=== PATIENT | female | born 1980 | race Caucasian/White ===

== ENCOUNTER 2017-04-22 17:43 | Emergency (ER) | payer OTHER ==
[2017-04-22 17:53] VITALS: BP 127/78; PULSE 81; TEMP 98.3; BMI 30.7
[2017-04-22] MEDS ORDERED: KETOROLAC TROMETHAMINE 60 MG/2 ML VIAL ONE (18:09)
[2017-04-22] MEDS ORDERED: KETOROLAC TROMETHAMINE 60 MG/2 ML VIAL IM ONE (18:12)
--- NOTE | 2017-04-22 18:16 | PDOC ---
History of Present Illness - General Chief Complaint: Sore Throat Stated Complaint: EAR PROBLEM Time Seen by Provider: 04/22/17 17:57 - History of Present Illness Initial Comments: 04/22/17 18:10 CHIEF COMPLAINT: ear/sore pain HISTORY OF PRESENT ILLNESS: 36 yo F with no PMH presents to [facility] with sore throat and L ear pain x 2 days. She reports fever yesterday of "like 100 degrees." Patient states she just returned from the last week. PAST MEDICAL HISTORY: Denies past medical history FAMILY HISTORY: Denies SOCIAL HISTORY: Denies tobacco, alcohol, illicit drug use. SURGICAL HISTORY: tubal ligation ALLERGIES: No known drug allergies REVIEW OF SYSTEMS General/Constitutional: Denies fever or chills. Denies weakness, weight change. HEENT: L ear pain, sore throat. Denies change in vision. Cardiovascular: Denies chest pain or shortness of breath. Respiratory: Denies cough, wheezing, or hemoptysis. Gastrointestinal: Denies nausea, vomiting, diarrhea or constipation. Denies rectal bleeding. Genitourinary: Denies dysuria, frequency, or change in urination. Musculoskeletal: Denies joint or muscle swelling or pain. Denies neck or back pain. Skin and breasts: Denies rash or easy bruising. Neurologic: Denies headache, vertigo, loss of consciousness, or loss of sensation. PHYSICAL EXAM General Appearance: Well-appearing, appropriately dressed. No apparent distress , no intoxication. HEENT: Bulging L TM with white discharge. EOMI, PERRLA, normal voice. No conjunctival pallor. No photophobia, scleral icterus. Neck: Supple. Trachea midline. No tenderness, rigidity, carotid bruit, stridor , lymphadenopathy, or thyromegaly. Respiratory/Chest: Lungs CTAB. No shortness of breath, chest tenderness, respiratory distress, accessory muscle use. No crackles, rales, rhonchi, stridor , wheezing, dullness Cardiovascular: RRR. S1, S2. No JVD, murmur, bradycardia, tachycardia. Vascular Pulses: Dorsalis-Pedis (R): 2+, Dorsalis-Pedis (L): 2+ Gastrointestinal/Abdominal: Normal bowel sounds. Abdomen soft, non-distended. No tenderness or rebound tenderness. No organomegaly, pulsatile mass, guarding , hernia, hepatomegaly, splenomegaly. Lymphatic: No adenopathy, tenderness. Musculoskeletal/Extremities: Normal inspection. FROM of all extremities, normal capillary refill. Pelvis Stable. No CVA tenderness. No tenderness to extremities, pedal edema, swelling, erythema or deformity. Integumentary: Appropriate color, dry, warm. 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 Fully oriented, alert. Appropriate mood/affect. Motor strength 5/5. No appreciable EOM palsy, facial droop or sensory deficit. 04/22/17 18:12 Past History - Past Medical History Allergies/Adverse Reactions: Allergies Allergy/AdvReac Type Severity Reaction Status Date / Time No Known Allergies Allergy Verified 04/22/17 17:51 Home Medications: Ambulatory Orders Amoxicillin - [Amoxicillin 875mg Tablet -] 875 mg PO BID #20 tablet 04/22/17 Ibuprofen 600 mg PO TID PRN #21 tablet 04/22/17 Other medical history: DENIES. - Surgical History Abdominal Surgery: Yes (DARLENE TAVAREZ) - Immunization History Immunization Up to Date: Yes - Psycho/Social/Smoking Cessation Hx Anxiety: No Suicidal Ideation: No Smoking History: Never smoked Have you smoked in the past 12 months: No Number of Cigarettes Smoked Daily: 0 Cigars Per Day: 0 Hx Alcohol Use: No Drug/Substance Use Hx: No Substance Use Type: None *Physical Exam - Vital Signs Last Vital Signs Temp Pulse Resp BP Pulse Ox 98.3 F 81 19 127/78 99 04/22/17 17:51 04/22/17 17:51 04/22/17 17:51 04/22/17 17:51 04/22/17 17:51 Medical Decision Making - Medical Decision Making 04/22/17 18:16 36 yo F with no PMH presents to [facility] with sore throat and L ear pain x 2 days. -Rapid strep Amoxicillin rx sent to pharm. Advised patient to take medications as prescribed and f/u with ENT if symptoms persist past 4-5 days. Advised patient of signs and symptoms for return to ER; patient verbalized understanding and agrees to plan. *DC/Admit/Observation/Transfer Diagnosis at time of Disposition: Otitis media Qualifiers: Otitis media type: suppurative Chronicity: acute Laterality: left Recurrence: not specified as recurrent Spontaneous tympanic membrane rupture: without spontaneous rupture Qualified Code(s): H66.002 - Acute suppurative otitis media without spontaneous rupture of ear drum, left ear - Discharge Dispostion Disposition: HOME Condition at time of disposition: Stable Admit: No - Prescriptions Prescriptions: Amoxicillin - [Amoxicillin 875mg Tablet -] 875 mg PO BID #20 tablet Ibuprofen 600 mg PO TID PRN #21 tablet PRN Reason: Pain Or Fever - Referrals Referrals: Mango Self MD [Staff Physician] - - Patient Instructions Printed Discharge Instructions: Middle Ear Infection Additional Instructions: Please take medication as prescribed. You may take Motrin for pain or fever. If your symptoms persist past 4-5 days, please follow up with the ENT doctor ( referral provided). If you experience fever unrelieved by Motrin, worsening pain, vomiting, headache, diarrhea, or any new or worsening symptoms, please return to the ER.
== END 2017-04-22 19:07 | disposition home or self-care (01) ==
LOC: JERFT 17:43
PROC: 3E0233Z Introduction of Anti-inflammatory into Muscle, Percutaneous Approach (ICD-10-PCS; principal; 2017-04-22)
DX: H66.002 Acute suppurative otitis media without spontaneous rupture of ear drum, left ear (principal)
CPT/HCPCS: 87070; 87077; 87430; 96372; 99281-25